=== PATIENT | male | born 1960 | race Caucasian/White ===

== ENCOUNTER 2017-12-04 06:43 | Day surgery (SDC) | payer BC, OTHER ==
[2017-12-04] MEDS ORDERED: PROPOFOL 200 MG/20 ML VIAL As Ordered ×3 (07:04→07:48)
[2017-12-04] MEDS ORDERED: LIDOCAINE 2% INJ 100 MG/5 ML SDV (FOR ANES.) As Ordered (07:04)
[2017-12-04] MEDS ORDERED: fentaNYL 100 MCG/2 ML INJECTION (J3010) As Ordered (07:36)
[2017-12-04] MEDS ORDERED: NS 1,000 ML IV (08:00)
== END 2017-12-04 08:28 | disposition home or self-care (01) ==
LOC: M OPP 06:43
DX: Z12.11 Encounter for screening for malignant neoplasm of colon (principal); K22.70 Barrett's esophagus without dysplasia; R12 Heartburn; K22.8 Other specified diseases of esophagus; Z98.0 Intestinal bypass and anastomosis status; Z98.84 Bariatric surgery status; K21.9 Gastro-esophageal reflux disease without esophagitis; E78.5 Hyperlipidemia, unspecified; F41.9 Anxiety disorder, unspecified; R06.83 Snoring; G47.30 Sleep apnea, unspecified; Z79.899 Other long term (current) drug therapy; Z80.1 Family history of malignant neoplasm of trachea, bronchus and lung
CPT/HCPCS: G0121

== ENCOUNTER → 2019-03-21 | Outpatient (CLI) | payer BC, OTHER ==
[~2019-03-21] MED LIST: DULO1CAP6 PO; OMEP20CA4 PO
--- NOTE | 2019-03-21 12:55 | REP ---
Two-view chest: 03/21/2019. Indication: Dyspnea. Cough. Comparison: 02/06/2013. Findings: The lungs are clear. There is no pleural effusion or pneumothorax. Elevated right hemidiaphragm is present. Cardiomediastinal silhouette is unremarkable. Impression: No acute cardiopulmonary process. Electronically Signed by Quinn Duncan DO 03/21/2019 12:47 P
== END ==
LOC: M LRY 12:26
PROVIDERS: ATTEND Physician Assistant
DX: R05 Cough (principal)

== ENCOUNTER 2021-01-17 12:07 | Emergency (ER) | payer BC, OTHER ==
[~2021-01-17] VITALS: Ht 182.9 cm; Wt 112.3 kg
[~2021-01-17 12:07] MED LIST changes: +OMEP1CAP73 PO; -OMEP20CA4 PO
[2021-01-17 12:08] VITALS: BP 161/77
[2021-01-17] MEDS ORDERED: ROSU10TA6 PO (12:14)
[2021-01-17] MEDS ORDERED: LEVO50TA5 PO (12:14)
== END 2021-01-17 12:52 | disposition left against medical advice (07) ==
LOC: M ED 12:07
DX: Z53.21 Procedure and treatment not carried out due to patient leaving prior to being seen by health care provider (principal)

== ENCOUNTER 2024-03-07 11:49 | Day surgery (SDC) | payer MEDICARE, BC ==
[~2024-03-07] VITALS: Ht 182.9 cm; Wt 109.8 kg
[~2024-03-07 11:49] MED LIST changes: +LEVO50TA5 PO; +NS 250 ML IV ONE; +ROSU10TA61 PO
[2024-03-07] MEDS ORDERED: propofoL 200 MG/20 ML VIAL As Ordered ONE (12:31)
[2024-03-07] MEDS ORDERED: LIDOCAINE 2% 100MG/5ML SDV (FOR ANES.) As Ordered ONE (12:31)
[2024-03-07 13:48] VITALS: BP 94/45; O2SAT 99
== END 2024-03-07 13:53 | disposition home or self-care (01) ==
LOC: M OPP 11:49
PROVIDERS: ATTEND Surgery
DX: Z12.11 Encounter for screening for malignant neoplasm of colon (principal); Z12.12 Encounter for screening for malignant neoplasm of rectum; D12.5 Benign neoplasm of sigmoid colon; D12.4 Benign neoplasm of descending colon; D12.2 Benign neoplasm of ascending colon; K21.9 Gastro-esophageal reflux disease without esophagitis; Z87.19 Personal history of other diseases of the digestive system; Z98.84 Bariatric surgery status; E03.9 Hypothyroidism, unspecified; E78.00 Pure hypercholesterolemia, unspecified; Z79.899 Other long term (current) drug therapy; Z79.890 Hormone replacement therapy